=== PATIENT | female | born 1990 ===

== ENCOUNTER 2021-10-05 08:00 | Outpatient (CLI) | payer OTHER | END 2021-10-05 23:59 | disposition home or self-care (01) | LOC: LAB.N 08:00 | PROVIDERS: ATTEND Registered Nurse | DX: U07.1 COVID-19 (principal) ==

== ENCOUNTER 2022-11-18 19:55 | Outpatient (CLI) | payer OTHER | END 2022-11-18 19:56 | disposition home or self-care (01) | LOC: SC 19:55 | PROVIDERS: ATTEND Nurse Practitioner Family | DX: G47.33 Obstructive sleep apnea (adult) (pediatric) (principal) | CPT/HCPCS: 95810 ==

== ENCOUNTER 2022-12-13 11:24 | Outpatient (CLI) | payer OTHER ==
--- NOTE | 2022-12-13 16:00 | SLEEP CARE CONSULTATION ---
Information from patient questionnaire entered by Christine Price. I have reviewed and concur with the information entered by Christine Price. This document represents the service I personally performed and the decisions made by me, Flor Gallo MD, [facility]. History of Present Illness Service Date and Time: 12/13/2022 1124 Initial [place] Sleepiness Scale score: 16 (11/05/22) Current [place] Sleepiness Scale score: 14 (12/13/22) Additional HPI information: HPI: Ms. Mckay returned for follow up of the sleep study she had on 11/08/2022. The polysomnography showed that the patient had normal sleep efficiency. Despite moderate sleep fragmentation, the sleep architecture was normal as well. Respiratory monitoring showed severe obstructive sleep apnea- hypopnea (AHI = 46.8) associated with frequent arousals, oxyhemoglobin desaturation and moderate hypoxia (maddie oxygen saturation of 79%). Baseline oxygen saturation was normal. The respiratory events occurred mainly during supine sleep (supine AHI = 79.7; non-supine = 10.16). Snore was moderate to loud in intensity. There was no significant periodic leg movement of sleep. Cardiac rhythm was normal sinus rhythm without significant arrhythmia. No abnormal behavior (parasomnia) observed during the night. The patient was informed of these findings. I explained to her the pathophysiology behind obstructive sleep apnea. She had a sleep study here 12 years ago that was negative. She had another sleep study about 4 years ago in [place] that was positive for obstructive sleep apnea-hypopnea. She was prescribed a BiPAP set at 8 20 cmH2O (auto setting). She could not use it because she felt the pressure was too high Sleep Study - Results Type of Sleep Study: Polysomnography (COMPLETED 11/18/22) Prior sleep studies: Yes Year and Where: [facility] 08/01/2019 Allergies and Home Medications Drug allergies reviewed: Yes Home medication list reviewed: Yes Allergy and home medication list: Allergies ibuprofen Allergy (Verified 12/13/22 08:50) Review of Systems Review of systems same as previous: Yes Physical Exam Vital signs obtained and entered by: CHRISTINE Ramirez MA Blood Pressure: 106/62 (LEFT ARM) Cuff size: regular Heart Rate: 65 O2 Saturation: 96 Height: 5 ft 9 in Weight: 166 lb 9.6 oz Body Mass Index: 24.5 BMI Classification: Normal Impression and Plan IMPRESSION: 1. Obstructive Sleep Apnea-Hypopnea Syndrome, severe, associated wit h moderate hypoxemia and sleep fragmentation. Obviously this is the cause of the patients symptoms of unrefreshed sleep, and excessive daytime sleepiness. I set her ResMed AirCurve auto to S mode and pressure at 8/4 cmH2O. I also gave her a [employer]ics DreamWear nasal cushion mask and nasal pillows to try, in case she does not like her full face mask. The patients predisposing factor for the sleep-related breathing disorder is her micro and retrognathia. PLAN: 1. Try using her BiPAP set at 8/4 cmH2O. 2. Manual CPAP/BiPAP titration study 3. Consider mandibular advancement surgery for a permanent treatment of obstructive sleep apnea-hypopnea. 4. Return for a follow up after the titration study. Mask provided: Yes Follow up with Sleep Care in: 1-2 months Plan: manual CPAP/BiPAP titration study Visit Type: In Office Time Spent with Patient (minutes): 25 Provider Statement: I spent 100% of the Face to Face Visit with the patient with greater than 50% spent counseling the patient and coordination of care.
[2022-12-13 16:03] VITALS: BP 106/62
== END 2022-12-13 11:25 | disposition home or self-care (01) ==
LOC: SC 11:24
PROVIDERS: ATTEND Internal Medicine Pulmonary Disease
DX: G47.33 Obstructive sleep apnea (adult) (pediatric) (principal)
CPT/HCPCS: 99212; 99213

== ENCOUNTER 2023-02-09 19:51 | Outpatient (CLI) | payer OTHER | END 2023-02-09 19:52 | disposition home or self-care (01) | LOC: SC 19:51 | PROVIDERS: ATTEND Internal Medicine Pulmonary Disease | DX: G47.33 Obstructive sleep apnea (adult) (pediatric) (principal) | CPT/HCPCS: 95811 ==

== ENCOUNTER 2023-02-23 10:36 | Outpatient (CLI) | payer OTHER ==
--- NOTE | 2023-02-23 11:27 | Sleep Patient Instructions ---
Sleep Center Visit Summary - Patient Visit Information Reason for Visit: TITRATION FOLLOWUP - Patient Instructions Additional Instructions: You were here for follow up of titration study. You will be continued on CPAP therapy with pressure at 6 cmH2O. Please let us know if the pressure change is uncomfortable and we can make further adjustments of the pressure. You should follow up with sleep care in 1-2 months. You may contact us sooner for any questions or concerns. - Clinic Information Contact: [facility] [address] [place] [address] [email or web address] T: [phone]
--- NOTE | 2023-02-23 11:33 | SLEEP CARE CONSULTATION ---
Information from patient questionnaire entered by Marbella Price. I have reviewed and concur with the information entered by Marbella Price. This document represents the service I personally performed and the decisions made by , Gabriela Garner ARNP. History of Present Illness Service Date and Time: 02/23/2023 1036 Initial [place] Sleepiness Scale score: 16 (11/05/22) Current [place] Sleepiness Scale score: 10 Additional HPI information: HORTENCIA BELTRAN returns for follow up of the sleep study with a manual CPAP titration study performed on 02/09/2023. The patient was informed of the following polysomnography findings: I explained that the optimal CPAP pressure is 6 cmH2O. CPAP at 6 cmH2O appeared to be optimal (AHI of 1.3 per hour on the pressure). The patient appeared to have tolerated positive airway pressure therapy very well. Sleep Study - Results Type of Sleep Study: Polysomnography (COMPLETED 11/18/22 TITRATION F/U COMPLETED ON 02/09/23) Prior sleep studies: Yes Year and Where: [facility] 08/01/2019 Polysomnography/Home Sleep Study results: IMPRESSION: The quality of the study is good. CPAP was initiated at 5 cmH2O and titrated up to CPAP at 7 cmH2O. CPAP at 6 cmH2O appeared to be optimal (AHI of 1.3 per hour on the pressure). There was supine sleep on the pressure. Oxygen saturation was normal throughout the night. The patient appeared to have tolerated positive airway pressure therapy very well. The patients sleep efficiency was normal. The sleep architecture was also normal. There was no significant periodic leg movement of sleep. Cardiac rhythm was normal sinus rhythm without significant arrhythmia. No abnormal behavior (parasomnia) observed during the night. Allergies and Home Medications Known drug allergies: Yes (as listed) Drug allergies reviewed: Yes Home medication list reviewed: Yes (no changes) Allergy and home medication list: Allergies ibuprofen Allergy (Verified 02/22/23 14:37) Review of Systems Review of systems same as previous: Yes (no changes) Physical Exam Vital signs obtained and entered by: Gabriela Andujar NP Blood Pressure: 103/62 Cuff size: wrist (left) Heart Rate: 60 O2 Saturation: 99 Height: 5 ft 9 in Weight: 176 lb 9.6 oz Body Mass Index: 26.0 BMI Classification: Overweight Impression and Plan 1. Obstructive Sleep Apnea-Hypopnea Syndrome, severe. She returns after a titration study which showed an optimal pressure setting of CPAP 6 cmH2O to control apneas. She is currently on a BIPAP set at 10/6 cmH2O. She has been using the BIPAP and states she has seen improvement of her daytime sleepiness and improved sleep. She states the Dreamwear nasal cushion is also very comfortable. She is happy with the PAP therapy. Because the titration showed good improvement of sleep apnea on CPAP mode 6 cmH2O, I changed the settings on her device. She will let me know if the change is uncomfortable for further adjustments. I will have her follow up in 1-2 months to see how she is doing. Her compliance report showed 70% compliance in last 30 days, 5 hours 59 minutes average use and residual AHI of 4.1 on BIPAP 10/6 cmH2O. Patient's apnea severity and rationale for treatment to reduce apnea, improve sleep quality and reduce cardiovascular and cerebrovascular events was reviewed. I also reviewed the benefit of consistent device use of CPAP for depression/anxiety. 2. Overweight, unspecified. Currently patients BMI is 26. Obesity increases the risk of apnea, CPAP pressure requirements and overall health risks especially cardiovascular and diabetes. Thus patient is advised to maintain a healthy weight. * Transfer DME * Change auto CPAP pressure to 6 cmH2O * Notify me if snoring with mask or feeling that the pressure is too much or too little * Maintain a healthy weight * Call this office if any problems using CPAP * Return for follow up in 1-2 months, or sooner if concerns arise Visit Type: In Office Time Spent with Patient (minutes): 25 Provider Statement: I spent 100% of the Face to Face Visit with the patient with greater than 50% spent counseling the patient and coordination of care.
[2023-02-23 11:36] VITALS: BP 103/62; O2SAT 99
== END 2023-02-23 10:37 | disposition home or self-care (01) ==
LOC: SC 10:36
PROVIDERS: ATTEND Nurse Practitioner Family
DX: G47.33 Obstructive sleep apnea (adult) (pediatric) (principal); Z68.26 Body mass index [BMI] 26.0-26.9, adult
CPT/HCPCS: 99212; 99213